=== PATIENT | female | born 1945 | race Caucasian/White ===

== ENCOUNTER → 2017-03-21 | Outpatient (CLI) | payer MEDICARE, MEDICAID ==
[~2017-03-21] MED LIST: ADVAIR DISK28 PUFFS IN; ALBUTEROL-200 PUFFS/ IH; AZITHROMYCIN250 MG PO; AZO-STANDARD95 MG PO; BROMFED DM COU118 ML PO; CEFDINIR300 MG PO; CEFTIN500 MG PO; DIFLUCAN150 MG PO; IBUPROFEN 200200 MG PO; LEVAQUIN 500 M500 MG PO; LISINOPRIL 10MG10 MG PO; MACROBID 100MG100 MG PO; MONTELUKAST SOD10 MG PO; OXAZEPAM 15MG C15 MG PO; PREDNISONE 20MG20 MG PO; PROVENTIL0.09 MG/A1 IH; PYRIDIUM 200MG200 MG PO; SEPTRA DS 800 M1 TAB PO; TESSALON PERLE100 M1 PO; TESSALON PERLE200 MG PO; ZYRTEC 10MG TAB10 MG PO; [UNRECOGNIZED DRUG - OTHER] PO
--- NOTE | 2017-03-21 15:08 | RADIOLOGY REPORT PS360 ---
EXAM: LUMBAR SPINE 5 VIEWS HISTORY: LOW BACK PAIN ORDERING PHYSICIAN: Ashok Edward MD PATIENT AGE: 71 years COMPARISON: 12 at 11 FINDINGS: There is mild levoscoliosis of the lumbar spine measuring 24 degrees by Ly technique.. Previously the scoliosis measured approximately 13 degrees. Degenerative disc disease is present from L1 to S1. Ridging osteophytes are noted on the right L2-L3. Mild facet arthritic changes are present at L4-L5 and L5-S1. No acute fracture or dislocation evident. No lytic or blastic change. Diffuse atherosclerotic calcification noted of the aorta. IMPRESSION: 1. Levoscoliosis slightly worse compared to the previous exam with lumbar spondylosis as detailed above.
--- NOTE | 2017-03-21 15:09 | RADIOLOGY REPORT PS360 ---
HIP RT 2-3V W/PELVIS IF PERFOR HISTORY: RT HIP PAIN ORDERING PHYSICIAN: Ashok Edward MD PATIENT AGE: 71 years COMPARISON: None FINDINGS: Moderate osteoarthritic changes are present involving the right hip with decrease in the joint space, osteophyte formation, and osteosclerosis. No acute fracture or dislocation. No lytic or blastic change. IMPRESSION: Moderate osteoarthritis of the right hip
== END ==
LOC: RAD 12:44
DX: M54.5 Low back pain (principal); M25.551 Pain in right hip

== ENCOUNTER 2017-10-01 09:24 | Inpatient (IN) | payer MEDICARE, MEDICAID ==
[2017-10-01] VITALS (8 sets, daily range): BP systolic 89–152; BP diastolic 48–94
[~2017-10-01] VITALS: Ht 160 cm; Wt 51.9 kg
[~2017-10-01 09:24] MED LIST changes: +TRAMADOL50 M1 PO; +ZITHROMAX Z PA250 MG PO
[2017-10-01] MEDS ORDERED: AMOXICILLIN 50500 MG PO (09:28)
--- OUTSIDE RECORDS SUMMARY | 2017-10-01 09:32 | External Medical Summary Rpt | CCD ---
Author Author [employer] Organization [employer] Address Unknown Phone Unavailable Purpose Continuity of Care Document - through 2016
--- OUTSIDE RECORDS SUMMARY | 2017-10-01 09:32 | External Medical Summary Rpt ---
Author Author CHILANGOTHANIA Haile, [place] [employer] Organization [employer] Address Unknown Phone Unavailable Results Lactate [Moles/volume] in Blood Observa Value Referen Units Interpr Notes Date tion ce etation Range Lactate 0.4 - 2.0 mmol/L Normal No May 16 [Moles/vo informati 2017 8:00 lume] in on in AM Blood source data Fibrin D-dimer FEU [Mass/volume] in Platelet poor plasma Observa Value Referen Units Interpr Notes Date tion ce etation Range Fibrin 0 - 400 ng/mL High May 16 D-dimer alert NOTIFICAT 2017 7:15 FEU ION AM [Mass/vol RESULT ume] in The Platelet D-Dimer poor values plasma are presented in units of mass(ng/m L) ofD-Dimer units(DDU ).This test has been FDA approved as an aid in the assessmen tand evaluatio n of suspected DIC, and thromboem bolic eventsinc luding PE and DVT. However, it does not have approvalf or cut-off values for the exclusion of these condition s. CBC W Auto Differential panel in Blood Observa Value Referen Units Interpr Notes Date tion ce etation Range Basophils 0 - 0.2 K/MM3 Normal No May 16 informati 2016 7:15 [#/volume on in AM ] in source Blood by data Automated count Basophils 0.1 - 2.0 % Normal No May 16 informati 2016 7:15 leukocyte on in AM s in source Blood by data Automated count Eosinophi 0.0 - 0.4 K/mm3 Normal No May 16 ls informati 2016 7:15 [#/volume on in AM ] in source Blood by data Automated count Eosinophi 0.1 - % Normal No May 16 ls/100 12.0 informati 2016 7:15 leukocyte on in AM s in source Blood by data Automated count Granulocy 1.8 - 7.8 K/mm3 High No May 16 regan informati 2017 7:15 [#/volume on in AM ] in source Blood by data Automated count Granulocy 37.0 - % Normal No May 16 regan/100 80.0 informati 2017 7:15 leukocyte on in AM s in source Blood by data Automated count Hematocri 37.0 - % Low No May 16 t [Volume 47.0 informati 2017 7:15 on in AM Fraction] source of Blood data Hemoglobi 12.2 - g/dL Low No May 16 n 16.2 informati 2016 7:15 [Mass/vol on in AM ume] in source Blood data Lymphocyt 0.7 - 4.5 K/mm3 Normal No May 16 es informati 2017 7:15 [#/volume on in AM ] in source Unspecifi data ed specimen by Automated count Lymphocyt 10 - 50.0 % Normal No May 16 es informati 2016 7:15 [#/volume on in AM ] in source Unspecifi data ed specimen by Automated count Erythrocy 27 - 31.2 pg Normal No May 16 te mean informati 2016 7:15 corpuscul on in AM ar source hemoglobi data n [Entitic mass] Erythrocy 31.8 - g/dl Normal No May 16 te mean 35.4 informati 2017 7:15 corpuscul on in AM ar source hemoglobi data n concentra tion [Mass/vol ume] by Automated count Erythrocy 82.2 - fl Normal No May 16 te mean 97.8 informati 2017 7:15 corpuscul on in AM ar volume source [Entitic data volume] by Automated count Monocytes 0.1 - 1.0 K/mm3 Normal No May 16 informati 2017 7:15 [#/volume on in AM ] in source Blood by data Automated count Monocytes 1.7 - 9.3 % Normal No May 16 / informati 2017 7:15 leukocyte on in AM s in source Blood by data Automated count Platelet 7.4 - fl Low No May 16 mean 10.4 informati 2017 7:15 volume on in AM [Entitic source volume] data in Blood by Automated count Platelets 142 - 424 K/mm3 High No May 16 informati 2017 7:15 [#/volume on in AM ] in source Blood data Erythrocy 4.2 - 5.4 M/mm3 Low No May 16 regan informati 2017 7:15 [#/volume on in AM ] in source Amniotic data fluid Erythrocy 11.5 - % Normal No May 16 te 17.5 informati 2017 7:15 distribut on in AM ion width source [Entitic data volume] by Automated count Leukocyte 4.8 - K/MM3 High No May 16 s 10.8 informati 2017 7:15 [#/volume on in AM ] in source Blood data
--- OUTSIDE RECORDS SUMMARY | 2017-10-01 09:32 | External Medical Summary Rpt | CCD ---
Author Author , [place] COLEMAN Address Unknown Phone [email or web address] Purpose Continuity of Care Document - 05-16-2017 through 2016 Problems Code Diagnosis DOS Provider Status R07.89 OTHER CHEST PAIN
--- OUTSIDE RECORDS SUMMARY | 2017-10-01 09:32 | External Medical Summary Rpt | CCD ---
Author Author , [place] COLEMAN Address Unknown Phone [email or web address] Purpose Continuity of Care Document - 05-16-2017 through 2016 Problems Code Diagnosis DOS Provider Status R07.89 OTHER CHEST PAIN
--- OUTSIDE RECORDS SUMMARY | 2017-10-01 09:32 | External Medical Summary Rpt | CCD ---
Author Author , [place] COLEMAN Address Unknown Phone [email or web address] Immunization Name Date Rout CVX Reac Dose Comm Prov Is Faci e tion ent ider Refu lity Give sed n PPV2 10- 33 999 Hist D203 No D203 3 7-20 oric 45 45 16 al Info rmat ion - Sour ce Unsp ecif ied Infl 10- 135 999 Hist D203 No D203 uenz 7-20 oric 45 45 a, 16 al High Info rmat Dose ion - Sour ce Unsp ecif ied
--- OUTSIDE RECORDS SUMMARY | 2017-10-01 09:32 | External Medical Summary Rpt ---
Author Author CHILANGOTHANIA Haile, [place] [employer] Organization [employer] [employer] Address Unknown Phone Unavailable [...]
--- OUTSIDE RECORDS SUMMARY | 2017-10-01 09:32 | External Medical Summary Rpt | CCD ---
Author Author , [place] COLEMAN Address Unknown Phone [email or web address] Immunization Name Date Rout CVX Reac Dose [...]
[2017-10-01 09:42] LABS: LYMPH # 2.5 K/mm3 (0.7-4.5); LYMPH % 15.1 % (10-50.0)
[2017-10-01] MEDS ORDERED: ACETAMINOPHEN-H1 TA2 PO (09:42)
[2017-10-01] MEDS ORDERED: ESCITALOPRAM10 M1 PO (09:43)
[2017-10-01] MEDS ORDERED: OMEPRAZOLE20 MG PO (09:43)
--- NOTE | 2017-10-01 10:01 | Emergency Room Report ---
History of Present Illness Time Seen by 09 Presenting Problem in Triage Pt arrived:Ambulance Stretcher Presenting Problem:PT REPORTS INCREASED SOA THIS MORNING, EMS STATED SA02 UPON ARRIVAL WAS 88% ON RA. PT IS CURRENTLY BEING TREATED FOR BRONCHITIS, HX OF "CHEMICAL PNEUMONIA", HX OF COPD PT ARRIVED ON CONTINUOUS NEB TREATMENT PER EMS Onset of symptoms date/time:10/01/17/ or onset unknown for:MEDICAL HX UNKNOWN Treatment Prior to Arrival: #20 L AC, BLOOD DRAW, CONTINUOUS DUONEB EMERGENCY DISPATCHER Provided by:RADIO FREQUENCY DESIGN ENGINEER Sepsis Risk Assessment: Temp: 97.1 B/P: 131/94 MAP: 106 Pulse: 148 Resp: 28 Recent fever? N Clinical Suspician of Infection? Y Mental Status: 1 - Regular (Normal Baseline) Sepsis Risk:Severe Sepsis Risk Have you (or family members/close friends) recently traveled outside the [place]? N If Yes, where/when: Have you had exposure to infectious disease within the past month? N TB? Other? Specify: 71 YRS OLD WF WITH CHEST DEFORMITY, CHEMICAL PNEUMONITIS AND AVID SMOKER OF LESS THAN A PACK A DAY. SHE STARTED FEELING SOA AND STARTED ON STEROID PACK THREE DAYS AGO. THIS MORNING SHE WAS WORSE SOA, SPEAKS SOHRT SENTENCES, HER DAUGHTER ARRIVED AND HER SATS WERE 88% AND FAST HEART RATE, CALLED EMS AND WAS ANNE MARIE HERE , HER SAT WAS ABOVE 96% ON 3 L NC, SHE HAS NO SUPPLEMENTAL OXYGEN AT HOME. SHE DENIES FEVER, PRODUCTIVE BUT ADMITS FOR WHEEZING. Source patient, RN notes reviewed, family, EMS notes reviewed Exam Limitations no limitations (HARD HEARING ), clinical condition ALLERGIES Coded Allergies: Quinolones (Mild, 11/22/15) trazodone (Mild, 11/22/15) Home Medications Active Scripts Benzonatate (Tessalon Perle) 100 MG PO Q4HP PRN couph #30 SGL Prov: 11/22/15 Reported Medications LISINOPRIL (Lisinopril) 10 MG PO DAILY Oxazepam (Oxazepam 15MG) 15 MG PO BIDP Cetirizine Hcl (All Day Allergy) 10 MG PO DAILY Albuterol (Albuterol-Hfa Inhaler) 2 PUFFS IH Q4HP #1 INH FLUTICASONE/SALMETEROL (Advair 500-50 Diskus) 28 PUFFS IN BID Montelukast Sodium 10 MG PO DAILY 30 Days Amoxicillin Trihydrate (Amoxicillin 500MG) 500 MG PO BID #28 HYDROCODONE/ACETAMINOPHEN (Hydrocodon-Acetaminophen 5-325) 1 TAB PO TID #90 Escitalopram Oxalate 10 MG PO DAILY #90 Omeprazole (Omeprazole 20MG) 20 MG PO DAILY #90 History Medical History General CAD? No Angina: No [place]: No Hypertension? Yes Hyperlipidemia? No CHF? No DVT? No PE? No COPD? Yes Asthma? No Anemia? No GERD? Yes Gastric ulcers? No GI Bleed? No Hernia? No Thyroid Problems? No Hypothyroidism? No CVA? No Seizures? No Diabetes? No Renal Insuffiency? No End Stage Renal Disease? No UTI? No Stones? No GB Disease: No Nephritic Syndrome? No Asplenia? No Hepatitis? No Sickle Cell Disease? No Arthritis? Yes Migraines? No Cataracts? No Glaucoma? No MRSA? No HIV? No TB? No Anxiety? Yes Depression? No Cancer? No More? Yes Additional hx: SCOLIOSIS Immunization Hx DT/Tetanus 1-4 YRS Flu THIS YR Pneumonia NOT SURE Surgical Hx Previous Surgery?Y TUBAL RIGHT ARM SURG. LUNG WASH OUT Family History Family Hx Diabetes Yes CAD Yes Hypertension Yes Hyperlipidemia Yes Cancer Yes TB Yes Social History Smoking Hx Smoker: Current Every Day Smoker Tobacco: Yes Type Cigarettes Packs/day < 1 Pack Alcohol Alcohol: No Review of Systems All Other Systems Reviewed and Negative Eyes no symptoms reported ENT no symptoms reported. Respiratory see HPI, shortness of breath Cardiovascular no symptoms reported Gastrointestinal no symptoms reported Genitourinary no symptoms reported. Musculoskeletal no symptoms reported Skin no symptoms reported Psychiatric/Neurological no symptoms reported Physical Exam Vital Signs Vital Signs Date Time Temp Pulse Resp B/P Pulse O2 O2 Flow FiO2 Ox Delivery Rate 10/01 1022 133 26 105/58 97 3 10/01 0924 97.1 148 28 131/94 99 5 - WBC >12,000 or <4,000 or 10% bands? 2 or more SIRS Criteria Met? B/P:131/94 MAP:106 Creatinine >2.0? UA output<0.5ml/kg/hr for 2 hrs? Platelet count >100,000? Lactate >2.0mmol/1? INR >1.2 or PTT > than 60 sec? Evidence of Organ Dysfunction? Provider documented clinical suspician of infection? Y Sepsis Criteria Count: 3 Sepsis Risk: Severe Sepsis Risk General Appearance normal appearance, WD/WN Eye Exam - bilateral eye normal exam, bilateral eye PERRL, bilateral eye EOMI Ear, Nose, Throat hearing grossly normal, normal ENT inspection Neck normal inspection, non-tender, supple, full range of motion Respiratory Status Yes: respiratory distress, use of accessory muscles, non productive cough. No: chest symmetrical, non tender chest. Lung Sounds bilateral: decreased breath sounds. Cardiovascular normal exam, regular rate/rhythm, no peripheral edema, no gallop, no JVD, no murmur, no rub, normal peripheral pulses Peripheral Pulses Pulses normal Yes Gastrointestinal normal bowel sounds, normal exam, non tender, soft, no organomegaly Back normal inspection, no CVA tenderness, no vertebral tenderness Extremities non-tender, normal range of motion, normal inspection Neurologic alert, zookeeper II-XII nml as tested, normal exam, oriented x 3 Reflexes Reflexes normal Yes Mental status normal mood/affect Skin intact, normal color, warm/dry Lymphatic no adenopathy Medical Decision Making LABS/Meds/Orders Pt receiving controlled substance in ED? No Results/Orders Laboratory Tests 10/01/17 0945: Lactic Acid 3.9 H 10/01/17 0920: B-Natriuretic Peptide 440 H 10/01/17 0920: Sodium 133 L, Potassium 4.9, Chloride 96 L, Carbon Dioxide 26, BUN 5 L, Creatinine 0.8, Estimated Creat Clear 53, Estimated GFR (MDRD) 71, Glucose 172 H, Calcium 10.5 H, Total Bilirubin 0.2, AST 19, ALT 27, Alkaline Phosphatase 97 , Creatine Kinase 33, CK-MB (CK-2) Rel Index 4.5 H, CK and CKMB Interp 1.5, Troponin I 0.03, Total Protein 8.1, Albumin 3.4, Globulin 4.7 H, Albumin/ Globulin Ratio 0.7 L, WBC 16.3 H, RBC 4.55, Hgb 12.8, Hct 43.1, MCV 94.7, RDW 13.6, Plt Count 568 H, MPV 7.0 L, Gran % 78.1, Gran # 12.7 H, Total Counted 100, Lymphocytes % 15.1, Monocytes % 6.2, Eosinophils % 0.1, Basophils % 0.4, Neutrophils 74, Band Neutrophils 2, Lymphocytes (Manual) 10, Lymphocytes # 2.5, Monocytes (Manual) 14 H, Monocytes # 1.0, Eosinophils # 0.0, Basophils # 0.1, Platelet Estimate SLIGHT INCREASE, PUBS MCHC 30.1 L, MCH 28.5 Current Medication Orders Sig/Vnaia Start time Last Medication Dose Route Stop Time Status Admin Ceftriaxone Sodium 1 GM ONCE ONE 10/01 1015 DC 10/01 Sodium Chloride 50 ML IV 10/01 1044 1018 Famotidine 20 MG ONCE ONE 10/01 1015 DC 11/ IV 10/01 1016 1017 Levalbuterol HCl 1.25 MG ONCE ONE 10/01 1015 DC INH 10/01 1016 Sodium Chloride 8 ML ONCE ONE 10/01 1015 DC / IV 10/01 1016 1018 Sodium Chloride 1,000 ML .Q2H 10/01 1015 AC 10/01 IV 10/01 1214 1016 Sodium Chloride 10 ML PRN PRN 10/01 1015 AC IV 10/02 1005 Ceftriaxone Sodium 0 .STK-MED ONE 10/01 1014 DC IV Famotidine 0 .STK-MED ONE 10/01 1014 DC IV Sodium Chloride 50 ML .STK-MED ONE 10/01 1014 DC IV Sodium Chloride 1,000 ML .STK-MED ONE 10/01 1014 DC IV Levalbuterol HCl 0 .STK-MED ONE 10/01 0952 DC INH Methylprednisolone 125 MG ONCE ONE 10/01 0945 DC 10/01 Sodium Succinate IV 10/01 0946 0935 Sodium Chloride 10 ML PRN PRN 10/01 0930 AC IV 10/02 0926 Methylprednisolone 0 .STK-MED ONE 10/01 0929 DC Sodium Succinate .ROUTE Orders Procedure Date/time Status Decision to admit 10/01 1106 Active RT REQUEST XOPENEX NEB 10/01 1003 Active BRAIN NATRIURETIC PEPTIDE 10/01 0944 Complete ARTERIAL BLOOD GAS REQUEST 10/01 928 Active 12 LEAD EKG-BESSON (INITIAL) 10/01 927 Active ELECTROCARDIOGRAM REQUEST 10/01 927 Active IV SALINE LOCK 10/01 927 Active CULTURE, BLOOD 10/01 927 Active LACTIC ACID 10/01 927 Complete CBC WITH AUTO DIFF 10/01 927 Complete CARDIAC ENZYMES 10/01 927 Complete CHEM 12 PROFILE 10/01 927 Complete DIFFERENTIAL-WBC 10/01 920 Complete CM/EKG CM/EKG EKG SINUS TACHYCARDIA 150/MIN, LAD, OLD AWMI, NO ACUTE . XRAY/CT/US XRAY/CT/US XRAY chest XR interpretation by reviewed by me Xray Results DIMINSHED R LUNG VOLUME, UPPER LOBE SCARING, AAYUSH CUTE INFILTRATES, Departure Departure Time of Disposition 09 Disposition Still a Patient Clinical Impression Primary Impression: COPD exacerbation Secondary Impressions: Congenital pectus excavatum, Respiratory failure, Tobacco use Condition STABLE Referrals Wagner BAKER,Ashok (Family) Additional Instructions Following the Xopenex neb treatment 2 days the patient started having increased air entry and wheezing. Her heart rate was decreased to 132. She is needs a supplemental oxygen. 10:[address] Fry who is chimney construction supervisor for Dr Edward. 1100 am the patient was accepted for [facility] Discharge Counseling Counseled pt/family regarding diagnosis, test results, medications/RX, follow up needs ED Critical Care Critical Care No If Critical Care minutes are documented, the time involved in the performance of seperately reportable procedures was not counted toward critical care time documented. I directly delivered medical care to this critically ill and/or injured patient. Timely evaluation and treatment was necessary to address the significant organ system(s) dysfunction present in this patient. at 0760
[2017-10-01 10:05] LABS: HEMOGLOBIN 12.8 g/dL (12.2-16.2)
[2017-10-01 10:36] LABS: NEUTROPHILS 74 % (42-76)
--- NOTE | 2017-10-01 11:07 | RADIOLOGY REPORT PS360 ---
CHEST-PORTABLE HISTORY: Shortness of air SOA ORDERING PHYSICIAN: Renetta Green MD PATIENT AGE: 71 years COMPARISON: 05/16/2017 FINDINGS: Normal heart size.. Severe right apical fibrotic changes with volume loss and right hilar retraction with emphysematous change of the right lung. This is not significant change. Increased markings are present in the left lower lobe and may be due to underlying pneumonia superimposed upon chronic change. No acute bony anomalies. IMPRESSION: 1. Chronic changes with emphysema and scarring/volume loss. 2. Increased markings left lower lobe which may be related to pneumonia
--- OUTSIDE RECORDS SUMMARY | 2017-10-01 11:12 | External Medical Summary Rpt | CCD ---
Author Author , [place] COLEMAN Address Unknown Phone [email or web address] Purpose Continuity of Care Document - 05-16-2017 through 2016 Problems Code Diagnosis DOS Provider Status R07.89 OTHER CHEST PAIN Results Labs Lab Lab Date Result Refere Interp Status Commen Order Detail nces retati t Range on Blood lactic acid measurement (moles/vol (10-01-2017 09:45) Blood = 3.9 0.4-2.0 complet lactic 017 mmol/L ed acid 09:45 measure ment (moles/ vol Comment: An elevated Lactic Acid is suggestive of sepsis and should Comment: be repeated within 6 hours of initial testing. Cardiac enzymes (10-01-2017 09:20) Serum = 4.5 0-4.0 complet or 017 U/L ed plasma 09:20 creatin e kinase MB (CK-M Serum = 1.5 0.0-3.6 complet or 017 ng/mL ed plasma 09:20 creatin e kinase MB measu Serum = 33 26-192 complet or 017 U/L ed plasma 09:20 creatin e kinase measure m Serum = 0.03 0.00-0. complet or 017 ng/mL 06 ed plasma 09:20 troponi n i.cardi ac measu Comprehensive metabolic panel (10-01-2017 09:20) Estimat = 53 50-200 complet ion of 017 ML/MIN ed creatin 09:20 ine renal clearan ce Serum = 0.7 1.1-1.8 complet or 017 ed plasma 09:20 albumin /globul in mass ra Serum = 3.4 3.4-5.0 complet or 017 gm/dL ed plasma 09:20 albumin measure ment (mas Serum = 97 46-116 complet or 017 U/L ed plasma 09:20 alkalin e phospha tase lisandra Serum 11-12-2 = 0.2 0.2-1.0 complet or 017 mg/dL ed plasma 09:20 total bilirub in measure m Serum 10-01-2 = 5 7-18 complet or 017 mg/dL ed plasma 09:20 urea nitroge n measure men Serum 10-01-2 = 10.5 8.5-10. complet or 017 mg/dL 1 ed plasma 09:20 calcium measure ment (mas Serum 2 = 96 98-107 complet or 017 mmoL/L ed plasma 09:20 chlorid e measure ment (mo Carbon 2 = 26 21.0-32 complet dioxide 017 mmoL/L .0 ed 09:20 measure ment Serum 10-01-2 = 0.8 0.55-1. complet or 017 mg/dL 02 ed plasma 09:20 creatin ine measure ment ( Estimat = 71 59- complet ed 017 ML/MIN ed glomeru 09:20 lar filtrat ion rate (GF Comment: REFERENCE RANGE: >60 ML/MIN/1.73 SQUARE METERS Comment: If this patient is -Croatian, then multiply the Comment: result by 1.210. Serum 10-01-2 = 4.7 1.3-3.2 complet globuli 017 gm/dL ed n 09:20 measure ment (mass/v olume) Serum 2 = 172 74-106 complet or 017 mg/dL ed plasma 09:20 glucose measure ment (mas Serum 2 = 4.9 3.5-5.1 complet potassi 017 mmoL/L ed um 09:20 measure ment Serum 2 = 133 136-145 complet sodium 017 mmoL/L ed measure 09:20 ment Serum 2 = 19 15-37 complet or 017 U/L ed plasma 09:20 asparta te aminotr ansfera ALT = 27 12-78 complet (SGPT) 017 U/L ed ser/vinay 09:20 s Protein 2 = 8.1 6.4-8.2 complet total 017 gm/dL ed ser/vinay 09:20 s Brain natriuretic peptide (10-01-2017 09:20) Brain --2 = 440 0-100 complet natriur 017 pg/mL ed etic 09:20 peptide CBC w auto diff (10-01-2017 09:20) Automat = 0.1 0-0.2 complet ed 017 K/MM3 ed blood 09:20 basophi l count (count/ vo Baso % = 0.4 % 0.1-2.0 complet 017 ed 09:20 Mean = 28.5 27-31.2 complet corpusc 017 pg ed ular 09:20 hemoglo bin (MCH) determ Automat = 30.1 31.8-35 complet ed 017 g/dl .4 ed erythro 09:20 cyte mean corpusc ular h Automat = 0.0 0.0-0.4 complet ed 017 K/mm3 ed blood 09:20 eosinop hil count Automat = 0.1 % 0.1-12. complet ed 017 0 ed blood 09:20 eosinop hils/10 0 leukocy t Blood = 12.7 1.8-7.8 complet granulo 017 K/mm3 ed cytes 09:20 automat ed count (numb Granulo = 78.1 37.0-80 complet cyte 017 % .0 ed percent 09:20 age Blood = 43.1 37.0-47 complet hematoc 017 % .0 ed rit 09:20 (volume fractio n) Blood = 12.8 12.2-16 complet hemoglo 017 g/dL .2 ed bin 09:20 measure ment (mass/v olum Absolut = 2.5 0.7-4.5 complet e 017 K/mm3 ed lymphoc 09:20 yte count Lymphoc = 15.1 10-50.0 complet yte 017 % ed count, 09:20 blood, automat ed Automat = 94.7 82.2-97 complet ed 017 fl .8 ed erythro 09:20 cyte mean corpusc ular v Absolut = 1.0 0.1-1.0 complet e 017 K/mm3 ed monocyt 09:20 e count [place] % = 6.2 % 1.7-9.3 complet 017 ed 09:20 Automat = 7.0 7.4-10. complet ed 017 fl 4 ed blood 09:20 platele t mean volume lisandra Blood = 568 142-424 complet platele 017 K/mm3 ed t count 09:20 Red = 4.55 4.2-5.4 complet blood 017 M/mm3 ed cell 09:20 count Automat = 13.6 11.5-17 complet ed 017 % .5 ed erythro 09:20 cyte distrib ution width Blood = 16.3 4.8-10. complet leukocy 017 K/MM3 8 ed regan 09:20 count (number /volume ) Differential panel, method unspecified - (10-01-2017 09:20) Automat = 2 % 0-8 complet ed 017 ed blood 09:20 band neutrop hil percent a LYMPH 10 % 10-50 complet 017 ed 09:20 Monocyt = 14 % 2-9 complet e % 017 ed 09:20 Platele SLIGHT complet t 017 INCREAS ed estimat 09:20 E e SLIGHT INCREAS E L Neutrop = 74 % 42-76 complet hil 017 ed count 09:20 Blood = 100 complet total 017 #CELLS ed cell 09:20 count Differential panel, method unspecified - (10-01-2017 09:20) LYMPH 10-01- 10 % 10% - Normal complet 017 50% ed 09:20 Platele SLIGHT complet ts 017 INCREAS ed [Presen 09:20 E ce] in Blood by Light microsc opy
--- OUTSIDE RECORDS SUMMARY | 2017-10-01 11:12 | External Medical Summary Rpt | CCD ---
Author Author , VIRGINIA COLEMAN Address Unknown Phone [email or web address] Purpose Continuity of Care Document - 05-16-2017 [...] SQUARE METERS Comment: If this patient is -Russian, then multiply the Comment: result by 1.210. [...] 017 K/mm3 ed monocyt 09:20 e count [place] % = 6.2 % 1.7-9.3 complet 017 [...]
--- OUTSIDE RECORDS SUMMARY | 2017-10-01 11:13 | External Medical Summary Rpt ---
Author Author CHILANGOTHANIA Haile, [employer] Address Unknown Phone Unavailable Results Lactate [Moles/volume] in Blood Observa Value Referen Units Interpr Notes Date tion ce etation Range Lactate 0.4 - 2.0 mmol/L High An Oct 01 [Moles/vo elevated 2017 9:45 lume] in Lactic AM Blood Acid is suggestiv e of sepsis and shouldbe repeated within 6 hours of initial testing. CBC W Auto Differential panel in Blood Observa Value Referen Units Interpr Notes Date tion ce etation Range Basophils 0 - 0.2 K/MM3 Normal No Oct 01 informati 2016 9:20 [#/volume on in AM ] in source Blood by data Automated count Basophils 0.1 - 2.0 % Normal No Oct 01 informati 2016 9:20 leukocyte on in AM s in source Blood by data Automated count Eosinophi 0.0 - 0.4 K/mm3 Normal No Oct 01 ls informati 2016 9:20 [#/volume on in AM ] in source Blood by data Automated count Eosinophi 0.1 - % Normal No Oct 01 ls/100 12.0 informati 2016 9:20 leukocyte on in AM s in source Blood by data Automated count Granulocy 1.8 - 7.8 K/mm3 High Oct 01 regan informati 2016 9:20 [#/volume on in AM ] in source Blood by data Automated count Granulocy 37.0 - % Normal No Oct 01 regan/100 80.0 informati 2016 9:20 leukocyte on in AM s in source Blood by data Automated count Hematocri 37.0 - % Normal Oct 01 t [Volume 47.0 informati 2016 9:20 on in AM Fraction] source of Blood data Hemoglobi 12.2 - g/dL No Oct 01 n 16.2 informati informati 2016 9:20 [Mass/vol on in on in AM ume] in source source Blood data data Lymphocyt 0.7 - 4.5 K/mm3 Normal No Nov 12 es informati 2016 9:20 [#/volume on in AM ] in source Unspecifi data ed specimen by Automated count Lymphocyt 10 - 50.0 % Normal No Oct 01 es informati 2016 9:20 [#/volume on in AM ] in source Unspecifi data ed specimen by Automated count Erythrocy 27 - 31.2 pg Normal No Oct 01 te mean informati 2016 9:20 corpuscul on in AM ar source hemoglobi data n [Entitic mass] Erythrocy 31.8 - g/dl Low No Oct 01 te mean 35.4 informati 2017 9:20 corpuscul on in AM ar source hemoglobi data n concentra tion [Mass/vol ume] by Automated count Erythrocy 82.2 - fl Normal No Oct 01 te mean 97.8 informati 2016 9:20 corpuscul on in AM ar volume source [Entitic data volume] by Automated count Monocytes 0.1 - 1.0 K/mm3 Normal No Oct 01 informati 2016 9:20 [#/volume on in AM ] in source Blood by data Automated count Monocytes 1.7 - 9.3 % Normal No Sep 12 /100 informati 2017 9:20 leukocyte on in AM s in source Blood by data Automated count Platelet 7.4 - fl Low No Oct 01 mean 10.4 informati 2017 9:20 volume on in AM [Entitic source volume] data in Blood by Automated count Platelets 142 - 424 K/mm3 High No Oct 01 informati 2016 9:20 [#/volume on in AM ] in source Blood data Erythrocy 4.2 - 5.4 M/mm3 Normal No Sep 12 regan informati 2016 9:20 [#/volume on in AM ] in source Amniotic data fluid Erythrocy 11.5 - % Normal No Oct 01 te 17.5 informati 2016 9:20 distribut on in AM ion width source [Entitic data volume] by Automated count Leukocyte 4.8 - K/MM3 High No Sep 12 s 10.8 informati 2016 9:20 [#/volume on in AM ] in source Blood data Differential panel, method unspecified - Observa Value Referen Units Interpr Notes Date tion ce etation Range Neutrophi 0 - 8 % Normal No Oct 01 ls.band informati 2016 9:20 form/100 on in AM leukocyte source s in data Blood by Automated count LYMPH 10 10 - 50 % Normal No Oct 01 informa 2017 tion in 9:20 AM source data Monocytes 2 - 9 % High No Oct 01 /100 informati 2017 9:20 leukocyte on in AM s in source Blood by data Automated count Platele SLIGHT No No No No Oct 01 ts INCREAS informa informa informa informa 2016 [Presen E tion in tion in tion in tion in 9:20 AM ce] in source source source source Blood data data data data by Light microsc opy Neutrophi 42 - 76 % Normal No Oct 01 ls informati 2016 9:20 [#/volume on in AM ] in source Blood by data Automated count Cells No #CELLS No Oct 01 Counted informati informati informati 2016 9:20 Total [#] on in on in on in AM in Blood source source source data data data Natriutietic peptide B [Mass/volume] in Serum or Plasma Observa Value Referen Units Interpr Notes Date tion ce etation Range Natriutie 0 - 100 pg/mL High No Oct 01 tic informati 2016 9:20 peptide B on in AM source [Mass/vol data ume] in Serum or Plasma Cardiac enzymes Observa Value Referen Units Interpr Notes Date tion ce etation Range Creatine 0 - 4.0 U/L High No Oct 01 kinase.MB informati 2016 9:20 /Creatine on in AM source kinase.to data saúl [Ratio] in Serum or Plasma Creatine 0.0 - 3.6 ng/mL Normal No Oct 01 kinase.MB informati 2016 9:20 on in AM [Mass/vol source ume] in data Serum or Plasma Creatine 26 - 192 U/L Normal No Oct 01 kinase informati 2016 9:20 [Enzymati on in AM c source activity/ data volume] in Serum or Plasma Troponin 0.00 - ng/mL Normal No Oct 01 I.cardiac 0.06 informati 2016 9:20 on in AM [Mass/vol source ume] in data Serum or Plasma Comprehensive metabolic 2000 panel in Serum or Plasma Observa Value Referen Units Interpr Notes Date tion ce etation Range Albumin/G 1.1 - 1.8 No Low No Oct 01 lobulin informati informati 2016 9:20 [Mass on in on in AM ratio] in source source Serum or data data Plasma Albumin 3.4 - 5.0 gm/dL Normal No Oct 01 [Mass/vol informati 2017 9:20 ume] in on in AM Serum or source Plasma data Alkaline 46 - 116 U/L Normal No Oct 01 phosphata informati 2016 9:20 se on in AM [Enzymati source c data activity/ volume] in Serum or Plasma Bilirubin 0.2 - 1.0 mg/dL Normal No Oct 01 .total informati 2016 9:20 [Mass/vol on in AM ume] in source Serum or data Plasma Urea 7 - 18 mg/dL Low No Oct 01 nitrogen informati 2016 9:20 [Mass/vol on in AM ume] in source Serum or data Plasma Calcium 8.5 - mg/dL High No Oct 01 [Mass/vol 10.1 informati 2016 9:20 ume] in on in AM Serum or source Plasma data Chloride 98 - 107 mmoL/L Low No Oct 01 [Moles/vo informati 2016 9:20 lume] in on in AM Serum or source Plasma data Carbon 21.0 - mmoL/L Normal No Oct 01 dioxide, 32.0 informati 2016 9:20 total on in AM [Moles/vo source lume] in data Serum or Plasma Creatinin 0.55 - mg/dL Normal No Oct 01 e 1.02 informati 2016 9:20 [Mass/vol on in AM ume] in source Serum or data Plasma Creatinin 50 - 200 ML/MIN Normal No Oct 01 e renal informati 2016 9:20 clearance on in AM source predicted data by Cockcroft -Gault formula Estimated 59- ML/MIN No REFERENCE Oct 01 informati RANGE: 2017 9:20 glomerula on in >60 AM r source ML/MIN/1. filtratio data 73 SQUARE n rate METERSIf (GF this patient is -A merican, then multiply theresult by 1.210. Globulin 1.3 - 3.2 gm/dL High No Oct 01 [Mass/vol informati 2016 9:20 ume] in on in AM Serum source data Glucose 74 - 106 mg/dL High No Oct 01 [Mass/vol informati 2016 9:20 ume] in on in AM Serum or source Plasma data Potassium 3.5 - 5.1 mmoL/L Normal No Oct 01 informati 2016 9:20 [Moles/vo on in AM lume] in source Serum or data Plasma Sodium 136 - 145 mmoL/L Low No Oct 01 [Moles/vo informati 2017 9:20 lume] in on in AM Serum or source Plasma data Aspartate 15 - 37 U/L Normal No Oct 01 informati 2016 9:20 aminotran on in AM sferase source [Enzymati data c activity/ volume] in Serum or Plasma Alanine 12 - 78 U/L Normal No Oct 01 aminotran informati 2016 9:20 sferase on in AM [Enzymati source c data activity/ volume] in Serum or Plasma Protein 6.4 - 8.2 gm/dL Normal No Oct 01 [Mass/vol informati 2016 9:20 ume] in on in AM Serum or source Plasma data Lactate [Moles/volume] in Blood Observa Value Referen Units Interpr Notes ti ce etation Range Lactate 0.4 - 2.0 mmol/L Normal No May 16 [Moles/vo informati 2016 8:00 lume] in on in AM Blood source data Fibrin D-dimer FEU [Mass/volume] in Platelet poor plasma Observa Value Referen Units Interpr Notes ce etation Range Fibrin 0 - 400 [...] Observa Value Referen Units Interpr Notes Date ti ce etation Range Basophils 0 - 0.2 [...] Normal No May 16 ls/100 12.0 informati 2017 7:15 leukocyte on in AM [...] Low No May 16 n 16.2 informati 2017 7:15 [Mass/vol on in AM ume] in [...] Normal No May 16 te mean informati 2017 7:15 corpuscul on in AM [...] Monocytes 1.7 - 9.3 % Normal No Apr 27 /100 informati 2017 7:15 leukocyte on in AM [...]
--- OUTSIDE RECORDS SUMMARY | 2017-10-01 11:13 | External Medical Summary Rpt | CCD ---
Demographics Preferred Language Vietnamese Marital Status Unknown Restorationist Affiliation Unknown Race Unknown Ethnic Group Unknown Author Author , [employer] Address Unknown Phone Immunization Unable to retrieve immunization data due to connection failure with Immunization Registry. Please try again later.
--- OUTSIDE RECORDS SUMMARY | 2017-10-01 11:13 | External Medical Summary Rpt | CCD ---
Demographics Preferred Language Ukrainian Marital Status Unknown Oriental Orthodox Affiliation Unknown Race Unknown Ethnic Group Unknown Author Author , [employer] [employer] Address Unknown Phone Immunization Unable to retrieve immunization data due to connection failure with Immunization Registry. Please try again later.
[2017-10-01] MEDS ORDERED: MEDROL 4MG. DOSE4 MG PO (11:55)
[2017-10-01] MEDS ORDERED: VISTARIL25 M1 PO (15:44)
--- NOTE | 2017-10-01 17:04 | HISTORY AND PHYSICAL REPORT ---
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 This morning her daughter-who apparently works as a licensed practical nurse elsewhere-took her saturations and found that they were in the low 80 percent range. She had seen Dr. Edward in his office last week and had been placed on prednisone orally for a chronic obstructive pulmonary disease exacerbation, initial improvement was noted but then this morning she felt worse. Presented to the emergency department where she was noted to be tachycardic. Patient did not notice this, after a nebulizer treatment, IV fluids and oxygen application she felt better. Chest x-ray has significant scarring but does show infiltrate. She is admitted to hospital for IV antibiotics, IV steroids, enhanced pulmonary toilet and further observation. Past medical history: Family HX Diabetes Yes CAD Yes Hypertension Yes Hyperlipidemia Yes Cancer Yes TB Yes Immunization HX DT/Tetanus 1-4 YRS Flu 2017-18FSN Pneumonia Received In Past TB Test in last year No General CAD? No Angina: No MA: No Hypertension? Yes Hyperlipidemia? No CHF? No DVT? No PE? 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 No Anemia? No GERD? Yes Gastric ulcers? No GI Bleed? No Hernia? No Thyroid Problems? No Hypothyroidism? No CVA? No Seizures? No Diabetes? No Renal Insuffiency? No UTI? No Stones? No GB Disease: No Nephritic Syndrome? No Asplenia? No Hepatitis? No Sickle Cell Disease? No Arthritis? Yes Migraines? No Cataracts? No Glaucoma? No MRSA? No HIV? No TB? No Anxiety? Yes Depression? No Cancer? No More? Yes Additional hx: SCOLIOSIS Past Surgical HX Previous Surgery?Y TUBAL RIGHT ARM SURG. LUNG WASH OUT Current home meds: Active Scripts Benzonatate (Tessalon Perle) 100 MG PO Q4HP PRN couph #30 SGL Prov: 11/22/15 Reported Medications LISINOPRIL (Lisinopril) 10 MG PO DAILY Oxazepam (Oxazepam 15MG) 15 MG PO TID Methylprednisolone (Medrol Dose Nahum) 4 MG PO UD [UNKNOWN] (Unknown Dose) TID Hydroxyzine Pamoate (Vistaril 25MG CAP) 25 MG PO Q6HP PRN ANXIETY Cetirizine Hcl (All Day Allergy) 10 MG PO DAILY Albuterol (Albuterol-Hfa Inhaler) 2 PUFFS IH Q4HP #1 INH FLUTICASONE/SALMETEROL (Advair 500-50 Diskus) 28 PUFFS IN BID Montelukast Sodium 10 MG PO DAILY 30 Days Amoxicillin Trihydrate (Amoxicillin 500MG) 500 MG PO BID #28 HYDROCODONE/ACETAMINOPHEN (Hydrocodon-Acetaminophen 5-325) 1 TAB PO TID #90 Escitalopram Oxalate 10 MG PO DAILY #90 Omeprazole (Omeprazole 20MG) 20 MG PO DAILY #90 Social Hx: Smoking HX Tobacco Yes Type Cigarettes Packs/day < 1 PACK Are you/the child exposed to second-hand smoke: Yes Alcohol Alcohol: No Hx of Drug Use Drug Use? No Patien't marital status is Patient's support system is good Review of systems: Constitutional malaise, weakness. No: fever. Respiratory shortness of breath, SOB with excertion, SOB at rest. No: stridor, wheezing. Cardiovascular No palpitations, No syncope Gastrointestinal/Abdominal No diarrhea, No difficulty swallowing, No nausea, poor appetite, poor fluid intake, No rectal bleeding, No vomiting Genitourinary No: no symptoms reported. Musculoskeletal back pain. Neurological No: see HPI. Exam: Lab data for last 24 hours: Laboratory Tests 10/01/17 1400: Lactic Acid 2.6 H 10/01/17 0945: Lactic Acid 3.9 H 10/01/17 0920: B-Natriuretic Peptide 440 H 10/01/17 0920: Sodium 133 L, Potassium 4.9, Chloride 96 L, Carbon Dioxide 26, BUN 5 L, Creatinine 0.8, Estimated Creat Clear 53, Estimated GFR (MDRD) 71, Glucose 172 H, Calcium 10.5 H, Total Bilirubin 0.2, AST 19, ALT 27, Alkaline Phosphatase 97 , Creatine Kinase 33, CK-MB (CK-2) Rel Index 4.5 H, CK and CKMB Interp 1.5, Troponin I 0.03, Total Protein 8.1, Albumin 3.4, Globulin 4.7 H, Albumin/ Globulin Ratio 0.7 L, WBC 16.3 H, RBC 4.55, Hgb 12.8, Hct 43.1, MCV 94.7, RDW 13.6, Plt Count 568 H, MPV 7.0 L, Gran % 78.1, Gran # 12.7 H, Total Counted 100, Lymphocytes % 15.1, Monocytes % 6.2, Eosinophils % 0.1, Basophils % 0.4, Neutrophils 74, Band Neutrophils 2, Lymphocytes (Manual) 10, Lymphocytes # 2.5, Monocytes (Manual) 14 H, Monocytes # 1.0, Eosinophils # 0.0, Basophils # 0.1, Platelet Estimate SLIGHT INCREASE, PUBS MCHC 30.1 L, MCH 28.5 Microbiology 10/01 945 BLOOD: Anaerobic Blood Culture - RECD 10/01 945 BLOOD: Aerobic Blood Culture - RECD 10/01 945 BLOOD: Anaerobic Blood Culture - RECD 10/01 945 BLOOD: Aerobic Blood Culture - RECD Admission vital signs: 1ST Vital Signs Result Date Time Pulse Ox 99 10/01 924 B/P 131/94 10/01 924 O2 Flow Rate 5 10/01 924 Temp 97.1 10/01 924 Pulse 148 10/01 924 Resp 28 10/01 924 O2 Delivery OXYGEN 10/01 1141 Additional information: Patient is pleasant, on oxygen, alert, oriented 3. Has obvious scoliotic deformity. Appears frail, mildly dehydrated, appears older than her stated age. Oropharynx dry but clear. Heart rate tachycardic but regular. Both anterior and posterior lung webb are afflicted with poor air movement, diminished breath sounds, barrel chest deformity and expiratory wheezing. She has mild tachypnea. Is able to finish sentences, in no acute distress. Abdomen soft, nontender. Capillary refill noted as normal. No edema in her extremities. Moves all extremities symmetrically. No facial asymmetry. Plan: Problem List 1. COPD exacerbation 2. Pneumonitis Plan: Plan will be to admit to hospital. Ceftriaxone/azithromycin as prescribed, start home medications. Hold DuoNeb and use Xopenex because of her tachycardia. Low- dose IV fluids. Labs in the morning. Of note, her daughter has indicated to nursing staff that she greatly desires an ABG done. I don't see any indication for this as her CO2 levels on her chemistry panel were normal, the patient is alert and her oxygen levels are normal. This is a painful, potentially dangerous test and without indication at this point it would seem useless at best and harmful at worst. However, her daughter-who identified herself as a licensed practical nurse-had some very sharp exchanges with some of our nursing staff on the floor and in fact had quite a vulgar tirade towards one of our staff nurses. When I spoke with the patient and family, including this individual they had no expressed concerns about the care she was receiving and did not mention the ABG issue. at 1703
[2017-10-01] MEDS ORDERED: ADVAIR DISK28 PUFFS IN ×2 (18:13→18:31)
[2017-10-02] VITALS (7 sets, daily range): BP systolic 94–128; BP diastolic 49–72
--- NOTE | 2017-10-02 07:14 | ACUTE CARE PROGRESS NOTE (QUA) ---
Progress Notes Subjective Date 10/02/17 Time 0710 Note Patient admitted yesterday with chronic obstructive pulmonary disease exacerbation. As the day progressed patient had episodes where she was increasingly dyspneic with sinus tachycardia. He was noted her electrocardiogram had changed from previous electrocardiogram nearly 4 months prior. Cardiac enzymes were ordered and troponin was positive. Patient was given metoprolol 25 mg which she responded to very well and it broke her sinus tachycardia. This morning she continues to complain of shortness of breath. She's had multiple doses of hydroxyzine as the patient has very significant anxiety over her health. Daughters are at bedside. Vitals noted. Patient has increased work of breathing. Nasal cannula is in place. Oropharynx is moist. Lungs have diminished breath sounds with prolonged expiration and end expiratory wheezes, no rales or rhonchi. Heart rate is distant but regular. Patient be given half milligram of Ativan to try to relax her. Zofran will be ordered prior Solu-Medrol as the patient believes is making her nauseous. Aerosols to been changed to Xopenex. Cardiology consult as been placed for non- STEMI. Objective Findings Last VS-Temp:97.5 B/P:107/67 Pulse:87 Resp:22 SaO2:94 OXYGEN Last weight lbs:114 oz:5 K.852 Method:Bed Scales Laboratory Tests 10/01/17 2200: Creatine Kinase 153, CK-MB (CK-2) Rel Index 6.3 H, CK and CKMB Interp 9.7 *H, Troponin I 1.23 H 10/01/17 1900: Creatine Kinase 130, CK-MB (CK-2) Rel Index 4.8 H, CK and CKMB Interp 6.2 H, Troponin I 1.06 H 10/01/17 1400: Lactic Acid 2.6 H 10/01/17 0945: Lactic Acid 3.9 H 10/01/17 0920: B-Natriuretic Peptide 440 H 10/01/17 0920: Sodium 133 L, Potassium 4.9, Chloride 96 L, Carbon Dioxide 26, BUN 5 L, Creatinine 0.8, Estimated Creat Clear 53, Estimated GFR (MDRD) 71, Glucose 172 H, Calcium 10.5 H, Total Bilirubin 0.2, AST 19, ALT 27, Alkaline Phosphatase 97 , Creatine Kinase 33, CK-MB (CK-2) Rel Index 4.5 H, CK and CKMB Interp 1.5, Troponin I 0.03, Total Protein 8.1, Albumin 3.4, Globulin 4.7 H, Albumin/ Globulin Ratio 0.7 L, WBC 16.3 H, RBC 4.55, Hgb 12.8, Hct 43.1, MCV 94.7, RDW 13.6, Plt Count 568 H, MPV 7.0 L, Gran % 78.1, Gran # 12.7 H, Total Counted 100, Lymphocytes % 15.1, Monocytes % 6.2, Eosinophils % 0.1, Basophils % 0.4, Neutrophils 74, Band Neutrophils 2, Lymphocytes (Manual) 10, Lymphocytes # 2.5, Monocytes (Manual) 14 H, Monocytes # 1.0, Eosinophils # 0.0, Basophils # 0.1, Platelet Estimate SLIGHT INCREASE, PUBS MCHC 30.1 L, MCH 28.5 Microbiology 10/01 945 BLOOD: Anaerobic Blood Culture - RECD 10/01 945 BLOOD: Aerobic Blood Culture - RECD 10/01 945 BLOOD: Anaerobic Blood Culture - RECD 10/01 945 BLOOD: Aerobic Blood Culture - RECD Assessment/Plan Problem List 1. Non-ST elevation myocardial infarction (NSTEMI) 2. COPD exacerbation 3. Pneumonitis Patient condition Guarded Plan: continue current care, consult rodent control worker This inpt stay is expected to cross 2 MNs from start of care Yes at 0714
[2017-10-02 07:32] LABS: LYMPH # 1.2 K/mm3 (0.7-4.5); LYMPH % 6.4 % (10-50.0)
--- NOTE | 2017-10-02 07:33 | PHARMACY CLINIC NOTE ---
Patient Demographics Patient Demographics Admission date: 10/01/17 Date: 10/02/17 Time: 0731 Allergies Coded Allergies: Quinolones (Mild, 11/22/15) trazodone (Mild, 11/22/15) levofloxacin (From LEVAQUIN) (10/01/17) HEIGHT- FT: 5 IN: 3.00 K.852 VTE General Information Labs: Laboratory Tests 10/01 0920 Hematology Hgb (12.2 - 16.2 g/dL) 12.8 Hct (37.0 - 47.0 %) 43.1 Plt Count (142 - 424 K/mm3) 568 H Disclaimer The following section includes nursing documentation that has been pulled in for pharmacy review. Patient's VTE score: 2 Patient's VTE Risk: VERY LOW RISK Clinical trial participant? No VTE prophylaxis NQF [id number] VTE prophylaxis ordered? Yes Type of prophylaxis/treatment: Lovenox at 0732
[2017-10-02 07:39] LABS: HEMOGLOBIN 11.4 g/dL (12.2-16.2)
[2017-10-02] MEDS ORDERED: NYSTATIN SU60 ML/BOT PO (07:56)
--- NOTE | 2017-10-02 08:08 | CONSULT NOTE ---
Standard Demographics Patient Demo Date of Consultation: 10/02/17 Referring Provider: Ashok Edward MD Reason for Consultation: NSTEMI PRIMARY DIAGNOSIS: COPD EXACERBATION Problem list Problem list: 1. 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 Tobacco use 2. 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 This morning her daughter-who apparently works as a licensed practical nurse elsewhere-took her saturations and found that they were in the low 80 percent range. She had seen Dr. Edward in his office last week and had been placed on prednisone orally for a chronic obstructive pulmonary disease exacerbation, initial improvement was noted but then this morning she felt worse. Presented to the emergency department where she was noted to be tachycardic. Patient did not notice this, after a nebulizer treatment, IV fluids and oxygen application she felt better. Chest x-ray has significant scarring but does show infiltrate. She is admitted to hospital for IV antibiotics, IV steroids, enhanced pulmonary toilet and further observation. The above per Dr. Fry. Cardiology consulted due to elevated troponins and abnormal electrocardiogram with incomplete RIGHT bundle branch block during elevated heart rate in the 150 bpm. Patient has no known history of coronary disease. She does have extensive history of hypertension and tobacco use along with chemical-induced lung disease. Past Medical History: General: Hypertension Yes CVA No Seizures No TB No COPD Yes (chemical pneumonitis/fibrosis) Asthma No Diabetes No Angina No NM No Hyperlipidemia No Urinary No Cancer No Rheumatic H.D. No Ulcers No MRSA No GB Disease No Additional hx SCOLIOSIS Past Surgical HX: Previous Surgery?Y TUBAL RIGHT ARM SURG. LUNG WASH OUT Allergies Coded Allergies: Quinolones (Mild, 11/22/15) trazodone (Mild, 11/22/15) levofloxacin (From LEVAQUIN) (10/01/17) Home medications: Active Scripts Benzonatate (Tessalon Perle) 100 MG PO Q4HP PRN COUGH #30 SGL Prov: 11/22/15 Reported Medications FLUTICASONE/SALMETEROL (Advair 500-50 Diskus) 1 PUFF IN BID LISINOPRIL (Lisinopril) 10 MG PO DAILY Oxazepam (Oxazepam 15MG) 15 MG PO TID Methylprednisolone (Medrol Dose Nahum) 4 MG PO UD [UNKNOWN] (Unknown Dose) TID Hydroxyzine Pamoate (Vistaril 25MG CAP) 25 MG PO Q6HP PRN ANXIETY NYSTATIN (Nystatin Susp 100,000 Units/Ml 60ML) 5 ML PO TID #200 Cetirizine Hcl (All Day Allergy) 10 MG PO DAILY Albuterol (Albuterol-Hfa Inhaler) 2 PUFFS IH Q4HP #1 INH Montelukast Sodium 10 MG PO DAILY 30 Days Amoxicillin Trihydrate (Amoxicillin 500MG) 500 MG PO BID #28 HYDROCODONE/ACETAMINOPHEN (Hydrocodon-Acetaminophen 5-325) 1 TAB PO TID #90 Escitalopram Oxalate 10 MG PO DAILY #90 Omeprazole (Omeprazole 20MG) 20 MG PO DAILY #90 Current Medications: Current Medications Montelukast Sodium 10 MG QHS PO Methylprednisolone Sodium Succinate 60 MG Q8 IV Ceftriaxone Sodium 1 GM DAILY IV Sodium Chloride 50 ML Oxazepam 15 MG TID PO Lorazepam 0 .STK-MED ONE .ROUTE (DC) Lorazepam 0.5 MG Q4HP PRN IV Sodium Chloride 2 ML PRN PRN IV Ondansetron HCl 0 .STK-MED ONE .ROUTE (DC) Hydroxyzine Pamoate 0 .STK-MED ONE PO (DC) Metoprolol Tartrate 0 .STK-MED ONE .ROUTE (DC) Metoprolol Tartrate 25 MG Q12 PO Nicotine 0 .STK-MED ONE TD (DC) Ondansetron HCl 0 .STK-MED ONE .ROUTE (DC) Fluticasone/Salmeterol 1 PUFFS BID IN (DC) Patient Own Medication ADVAIR 500/50 - 1 PUFF BID IH Hydrocodone Bitart/Acetaminophen 0 .STK-MED ONE PO (DC) Hydroxyzine Pamoate 25 MG Q6HP PRN PO Hydroxyzine Pamoate 0 .STK-MED ONE PO (DC) Methylprednisolone Sodium Succinate 0 .STK-MED ONE .ROUTE (DC) Methylprednisolone Sodium Succinate 60 MG Q6 IV (DC) Oxazepam 15 MG TIDP PRN PO (DC) Oxazepam 0 .STK-MED ONE PO (DC) Oxazepam 15 MG BIDP PRN PO (DC) Hydrocodone Bitart/Acetaminophen 1 TAB TID PO Levalbuterol HCl 1.25 MG ONCE ONE INH (DC) Levalbuterol HCl 0 .STK-MED ONE INH (DC) Levalbuterol HCl 1.25 MG Q6H6 INH Sodium Chloride 10 ML PRN PRN IV Azithromycin 500 MG 1100 IV Sodium Chloride 250 ML Acetaminophen 650 MG Q4HP PRN PO Influenza Virus Vaccine Quadrival 0.5 ML PRN PRN IM Nicotine 21 MG DAILYP PRN TD Ondansetron HCl 4 MG Q6HP PRN IV Sodium Chloride 8 ML BID IV Famotidine 20 MG BID IV (DC) Enoxaparin Sodium 40 MG DAILY SC Ceftriaxone Sodium 1 GM ONCE ONE IV (DC) Sodium Chloride 50 ML Famotidine 20 MG ONCE ONE IV (DC) Levalbuterol HCl 1.25 MG ONCE ONE INH (DC) Sodium Chloride 8 ML ONCE ONE IV (DC) Sodium Chloride 1,000 ML .Q2H IV (DC) Sodium Chloride 10 ML PRN PRN IV Ceftriaxone Sodium 0 .STK-MED ONE IV (DC) Famotidine 0 .STK-MED ONE IV (DC) Sodium Chloride 50 ML .STK-MED ONE IV (DC) Sodium Chloride 1,000 ML .STK-MED ONE IV (DC) Levalbuterol HCl 0 .STK-MED ONE INH (DC) Methylprednisolone Sodium Succinate 125 MG ONCE ONE IV (DC) Sodium Chloride 10 ML PRN PRN IV Methylprednisolone Sodium Succinate 0 .STK-MED ONE .ROUTE (DC) Citalopram Hydrobromide 20 MG DAILY PO Lisinopril 10 MG DAILY PO Loratadine 10 MG DAILY PO Montelukast Sodium 10 MG DAILY PO (DC) Pantoprazole Sodium 40 MG DAILY PO Immunization HX DT/Tetanus 1-4 YRS AGO Flu [id number] Pneumonia RECEIVED IN PAST TB Test in last year No Family history Family HX Family Hx Insignificant No Diabetes Yes CAD Yes Hypertension Yes Hyperlipidemia Yes Cancer Yes TB Yes Social Hx: Smoking HX Tobacco Yes Type Cigarettes Packs/day < 1 PACK Are you/the child exposed to second-hand smoke: Yes Alcohol Alcohol: No Hx of Drug Use Drug Use? No Review of systems: Constitutional weakness. Respiratory shortness of breath, SOB with excertion. Cardiovascular chest pain Gastrointestinal/Abdominal No no symptoms reported Genitourinary No: no symptoms reported. Musculoskeletal back pain. Neurological No: no symptoms reported. Exam: Admission Vital Signs: 1ST Vital Signs Result Date Time Pulse Ox 99 10/01 924 B/P 131/94 10/01 924 O2 Flow Rate 5 10/01 09 Temp 97.1 10/01 924 Pulse 148 10/01 09 Resp 28 10/01 0924 O2 Delivery OXYGEN 10/01 1141 Last Vital Signs: Vital Signs Result Date Time Pulse Ox 93 10/02 806 B/P 124/72 10/02 806 O2 Delivery OXYGEN 10/02 806 Temp 97.8 10/02 08 Pulse 99 10/02 0806 Resp 22 10/02 08 O2 Flow Rate 3 10/02 0628 Exam General appearance: alert, awake Neck: no carotid bruit, no JVD Cardiovascular: regular rate & rhythm Respiratory: decreased breath sounds bilaterally with diffuse coarse breath sounds and mild wheezing. ABD: soft Extremities: moves all, no peripheral edema Neuro: alert, intact, oriented Laboratory data: Laboratory Tests 10/02/17 0626: Sodium 138, Potassium 4.9, Chloride 104, Carbon Dioxide 26, BUN 13, Creatinine 0.8, Estimated Creat Clear 54, Estimated GFR (MDRD) 71, Glucose 195 H, Calcium 9.9 10/02/17 0626: B-Natriuretic Peptide 3680 H, WBC 18.0 H, RBC 3.96 L, Hgb 11.4 L, Hct 37.6, MCV 95.0, RDW 13.7, Plt Count 513 H, MPV 7.4, Gran % 87.6 H, Gran # 15.8 H, Lymphocytes % 6.4 L, Monocytes % 5.7, Eosinophils % 0.1, Basophils % 0.2, Lymphocytes # 1.2, Monocytes # 1.0, Eosinophils # 0.0, Basophils # 0.0, PUBS MCHC 30.1 L, MCH 28.6 10/01/17 2200: Creatine Kinase 153, CK-MB (CK-2) Rel Index 6.3 H, CK and CKMB Interp 9.7 *H, Troponin I 1.23 H 10/01/17 1900: Creatine Kinase 130, CK-MB (CK-2) Rel Index 4.8 H, CK and CKMB Interp 6.2 H, Troponin I 1.06 H 10/01/17 1400: Lactic Acid 2.6 H 10/01/17 0945: Lactic Acid 3.9 H 10/01/17 0920: B-Natriuretic Peptide 440 H 10/01/17 0920: Sodium 133 L, Potassium 4.9, Chloride 96 L, Carbon Dioxide 26, BUN 5 L, Creatinine 0.8, Estimated Creat Clear 53, Estimated GFR (MDRD) 71, Glucose 172 H, Calcium 10.5 H, Total Bilirubin 0.2, AST 19, ALT 27, Alkaline Phosphatase 97 , Creatine Kinase 33, CK-MB (CK-2) Rel Index 4.5 H, CK and CKMB Interp 1.5, Troponin I 0.03, Total Protein 8.1, Albumin 3.4, Globulin 4.7 H, Albumin/ Globulin Ratio 0.7 L, WBC 16.3 H, RBC 4.55, Hgb 12.8, Hct 43.1, MCV 94.7, RDW 13.6, Plt Count 568 H, MPV 7.0 L, Gran % 78.1, Gran # 12.7 H, Total Counted 100, Lymphocytes % 15.1, Monocytes % 6.2, Eosinophils % 0.1, Basophils % 0.4, Neutrophils 74, Band Neutrophils 2, Lymphocytes (Manual) 10, Lymphocytes # 2.5, Monocytes (Manual) 14 H, Monocytes # 1.0, Eosinophils # 0.0, Basophils # 0.1, Platelet Estimate SLIGHT INCREASE, PUBS MCHC 30.1 L, MCH 28.5 Microbiology Date/Time Procedure - Status Source Growth 10/01 945 Anaerobic Blood Culture - RECD BLOOD 10/01 945 Aerobic Blood Culture - RECD BLOOD 10/01 945 Anaerobic Blood Culture - RECD BLOOD 10/01 945 Aerobic Blood Culture - RECD BLOOD Plan Assessment: 1. Non-ST elevation myocardial infarction 2. Pneumonia 3. Elevated BNP, 3680. Add IV lasix. 4. severe Lung disease 5. tobacco use 6. HTN MINNA N-STEMI SCORE MINNA N-STEMI SCORE Response Value Age of patient 65 yrs or more 1 Number of risk factors for CAD Presence of 3 or more 1 Prior coronary artery stenosis (seen in angiography) Less than 50% 0 ST-Segment deviation on ECG (>1 min) Absent 0 Prior aspirin intake No ASA in the last 7 days 0 Severe anginal chest pain No or 1 episode in 24h 0 Elevated cardiac markers(CK-MB or troponin) Present 1 Total 3 Plan: 1. Echocardiogram is pending at this time. 2. Patient is unable to lie flat at this time. Recommendation for cardiac catheterization was made but will be postponed until patient is able to lie flat. 3. Continue metoprolol and lisinopril. Recommend adding aspirin 81 mg and plavix 75 mg daily. at 0856
--- NOTE | 2017-10-02 20:00 | RADIOLOGY REPORT PS360 ---
PROCEDURE: 2-D M-mode and color Doppler study INDICATIONS FOR THE TEST: Chest pain COPD+ Heart Murmur Tobacco Smoking+ Palpitations Fatigue Syncope Edema Hypertension+Diabetes Mellitus Rheumatic Fever SOB+OCASIO Obesity Hyperlipidemia+ Family History HD Additional History CHEMICAL PNEUMONIA, FIBROSIS PATIENT INFORMATION HEIGHT: 63 WEIGHT:114 GENDER: Female B/P:131/94 2-D/M-MODE INTERPRETATION: 2-D MEASUREMENTS OBSERVED VALUES IN CMS Right Ventricular Dimension (RVDd) 3.1 Interventricular Septum (Thickness)(IVsd) 1.1 Left Ventricular Internal Dimensions(LVIDd) 4.1 Left Ventricular Posterior Wall (Thickness)(LVPWd) 1.1 Aortic Root 2.6 Aortic Cusp Separation 1.8 Left Atrial Dimensions (LAD) 3.5 2D 1. Technically difficult study because of the patient's factor and poor acoustic windows 2. The left atrium is moderately enlarged, left ventricle is mildly dilated, there is mild concentric left ventricular hypertrophy, there is severely reduced left ventricular systolic function, visually estimated ejection fraction approximately 20%, there is marked hypo to akinesis involving mid to distal septum, anterior, anteroapical, apical and anterolateral wall. 3. The right atrium and right ventricle are moderately enlarged, contractility of the right ventricle is moderately reduced. 4. The aortic valve is thickened and calcified leaflet continue to display mobility. 5. The mitral and tricuspid valve leaflets are minimally thickened. 6. The pulmonic valve is poorly visualized. 7. No significant pericardial effusion noted. DOPPLER INTERROGATION: Doppler interrogation of the aortic, mitral and tricuspid valvular presence of mild mitral and tricuspid regurgitation, calculated right ventricular systolic pressure is 39 mmHg consistent with mild pulmonary hypertension, diastolic parameters are inconclusive. CONCLUSION: 1. Biatrial enlargement, mildly dilated left ventricle, mild concentric left ventricular hypertrophy, visually estimated ejection fraction approximately 20% with multiple segmental wall motion abnormality described above, diastolic parameters are inconclusive. 2. Moderately enlarged right ventricle with moderate reduction in right ventricular contractility. 3. Mild mitral and tricuspid regurgitation 4. No significant pericardial effusion noted.
[2017-10-03] VITALS (8 sets, daily range): BP systolic 112–133; BP diastolic 51–75
--- NOTE | 2017-10-03 07:07 | ACUTE CARE PROGRESS NOTE (QUA) ---
Progress Notes Subjective Date 10/03/17 Time 0703 Note Patient has no new complaints this morning. She slept fairly well overnight but awoke early this morning feeling anxious. Her daughter asks that the Ativan be continued. In regards to shortness of breath she's noticed some improvement as well. She was given additional IV Lasix yesterday evening. She denies any chest pain. Patient is awake and alert. She has increased respiratory rate. Lungs have improved aeration with expiratory wheezes. Heart is tachycardic. Extremities are without edema. Labs pending Echocardiogram showed ejection fraction of 20 percent and evidence of pulmonary hypertension. 1. Continue Solu-Medrol and aerosols 2. Change metoprolol to carvedilol, continue lisinopril and Lasix. I discussed with the family the benefits of cardiac catheterization and the patient feels like at this time she still cannot lay flat. 3. Discontinue oxazepam in favor of oral Ativan. Risks and benefits discussed of using Ativan for anxiety/sedation and its effect on her respiratory system Objective Findings Last VS-Temp:97.6 B/P:119/69 Pulse:77 Resp:22 SaO2:99 OXYGEN Last weight lbs:114 oz:5 K.852 Method:Bed Scales Assessment/Plan Problem List 1. Non-ST elevation myocardial infarction (NSTEMI) 2. COPD exacerbation 3. Pneumonitis Patient condition Stable Plan: continue current care, make medication changes This inpt stay is expected to cross 2 MNs from start of care Yes at 0706
[2017-10-03 07:29] LABS: HEMOGLOBIN 11.4 g/dL (12.2-16.2); LYMPH % 8.1 % (10-50.0)
--- NOTE | 2017-10-03 08:57 | ACUTE CARE PROGRESS NOTE (QUA) ---
Progress Notes Subjective Date 10/03/17 Time 0848 Note 71 yo WF in bed. Still with SOA which is exacerbated by anxiety. Questions about cath and sedation as well as results of Echo and possible AICD discussed. Family states patient is going to sign DNR. She is willing to have cardiac cath but is concerned about being able to lie flat due to SOA and back pain from scoliosis. Objective Findings Last VS-Temp:97.7 B/P:129/60 Pulse:91 Resp:22 SaO2:98 OXYGEN Last weight lbs:114 oz:5 K.852 Method:Bed Scales Exam General appearance: awake, thin, hard of hearing Cardiovascular: regular rate & rhythm Respiratory: diffuse wheezing bilaterally Extremities: moves all, no peripheral edema Neuro: alert Reviewed: medications, vital signs, lab results Assessment/Plan Problem List 1. Non-ST elevation myocardial infarction (NSTEMI) Assessment/Plan: On ASA and plavix. 2. COPD exacerbation 3. Pneumonitis 4. Cardiomyopathy Assessment/Plan: Pt now on coreg and SOUMYA along with lasix. Echo shows EF 20% with multiple segmental wall motion abnormalities. Patient condition Guarded Plan: Tentatively planning for cardiac cath tomorrow. Will use wedge under back to help with pain and anxiety. This inpt stay is expected to cross 2 MNs from start of care Yes at 1406
[2017-10-04] VITALS (17 sets, daily range): BP systolic 112–185; BP diastolic 63–104
--- NOTE | 2017-10-04 08:12 | ACUTE CARE PROGRESS NOTE (QUA) ---
Progress Notes Subjective Date 10/04/17 Time 0810 Note Patient has no complaints this morning. She still feels mildly short of breath but this has improved over the last 24 hours. She has agreed to cardiac catheterization. Vital signs reviewed. Lungs have adventitious sounds but no rales. There is occasional expiratory wheeze. Heart has regular rate and rhythm. Cardiac catheterization today. Patient has agreed to stenting if necessary but does not want any further intervention should be recommended. Patient has been made a DO NOT RESUSCITATE. Continue medical management and await cardiac catheterization results. By this afternoon patient can sit up in a chair. Continue steroids and nebs Objective Findings Last VS-Temp:98.2 B/P:132/74 Pulse:89 Resp:22 SaO2:98 OXYGEN Last weight lbs:114 oz:5 K.852 Method:Bed Scales Assessment/Plan Problem List 1. Non-ST elevation myocardial infarction (NSTEMI) 2. COPD exacerbation 3. Pneumonitis 4. Cardiomyopathy Patient condition Stable Plan: continue current care This inpt stay is expected to cross 2 MNs from start of care Yes at 0811
--- NOTE | 2017-10-04 09:49 | ACUTE CARE PROGRESS NOTE (QUA) ---
Progress Notes Subjective Date 10/04/17 Time 0948 Assessment/Plan Problem List 1. Non-ST elevation myocardial infarction (NSTEMI) 2. COPD exacerbation 3. Pneumonitis 4. Cardiomyopathy This inpt stay is expected to cross 2 MNs from start of care Yes Antibiotic Stewardship (2) Current Culture Results Microbiology 10/01 945 BLOOD: Anaerobic Blood Culture - RES 10/01 0945 BLOOD: Aerobic Blood Culture - RES Infxn that will respond? Yes Right drug,dose,and route? Yes More targeted antbx? No at 0948
--- NOTE | 2017-10-04 11:18 | RADIOLOGY REPORT PS360 ---
CARDIAC CATHETERIZATION DATE OF CATHETERIZATION:10/04/2017 10:46 AM PROCEDURES: 1. Left heart catheterization 2. Left ventriculogram 3. Selective coronary angiogram INDICATION FOR TEST: 1. Systolic congestive heart failure ejection fraction 20% 2. Acute non-ST elevation myocardial infarction troponin greater than 1 Informed consent was obtained prior to the procedure. COMPLICATIONS: None ESTIMATED BLOOD LOSS: Less than 10 ml. TECHNIQUE: One percent lidocaine used to anesthetize the right anterior aspect of the wrist. The right radial artery was accessed via the Seldinger technique. A 6 Turkmen sheath was placed in the right radial artery. 2.5 mg of verapamil, 800 mcg of nitroglycerin and 5000 U Heparin were given through the arterial sheath. The trap catheter was also used to perform left heart catheterization and left ventriculography. At the end of the procedure the patient was transferred to the post-op holding area in stable condition for arterial sheath removal. ANGIOGRAPHIC RESULTS: 1. The left main artery normal 2. The left anterior descending artery has proximal 10% stenoses within mid vessel myocardial bridge creating a 50% systolic compression. 3. The circumflex artery is nondominant and has mild 10-20% stenoses 4. The right coronary artery is a dominant vessel and has mid vessel 50-60% stenosis 5. The HELMS ventriculogram reveals left ventricular dilatation reduced ejection fraction 25% 6. The left ventricular end-diastolic pressure 20 mmHg IMPRESSION: 1. Cardiomyopathy which is out of proportion to the extent of coronary artery disease suggesting a primary myocardial process which is nonischemic 2. Coronary artery disease 3. Severely reduced ejection fraction 4. Mildly elevated LVEDP PLAN: 1. Standard therapy for systolic congestive heart failure 2. At this time I do not feel stenting the right coronary artery would offer any clinical benefit patient 3. Because of the non-STEMI data would indicate or suggest patient should be on aspirin and Plavix for one year 4. Risk factor modification 5. Cardiac rehabilitation 6. I do not believe patient is a candidate for either a lifevest or defibrillator
[2017-10-05] VITALS (8 sets, daily range): BP systolic 107–135; BP diastolic 61–80
--- NOTE | 2017-10-05 07:19 | ACUTE CARE PROGRESS NOTE (QUA) ---
Progress Notes Subjective Date 10/05/17 Time 0717 Note Patient has no complaints this morning. She still has mild dyspnea. She underwent cardiac catheterization yesterday and has nonischemic cardiomyopathy. Patient is in no distress. Lungs have faint expiratory wheezes improved from yesterday. Heart has a regular rate and rhythm. Continue current care but transition to orals except for steroids and azithromycin. Per family request hospice will be consult Objective Findings Last VS-Temp:98.5 B/P:107/61 Pulse:83 Resp:22 SaO2:96 OXYGEN Last weight lbs:114 oz:5 K.852 Method:Bed Scales Laboratory Tests 10/04/17 0830: Sodium 138, Potassium 4.5, Chloride 98, Carbon Dioxide 38 H, BUN 24 H, Creatinine 0.8, Estimated Creat Clear 54, Estimated GFR (MDRD) 71, Glucose 130 H, Calcium 10.0 Assessment/Plan Problem List 1. Non-ST elevation myocardial infarction (NSTEMI) 2. COPD exacerbation 3. Pneumonitis 4. Cardiomyopathy Patient condition Improving Plan: continue current care This inpt stay is expected to cross 2 MNs from start of care Yes at 0718
[2017-10-05] MEDS ORDERED: CARVEDILOL6.25 MG PO (07:20)
[2017-10-05] MEDS ORDERED: CLOPIDOGREL75 M1 PO (07:21)
[2017-10-05] MEDS ORDERED: ADULT LOW DOSE81 MG PO (07:22)
[2017-10-05] MEDS ORDERED: FUROSEMIDE40 MG PO (07:22)
[2017-10-05] MEDS ORDERED: PREDNISONE20 MG PO (07:23)
[2017-10-05] MEDS ORDERED: LORAZEPAM0.5 MG PO (07:26)
--- NOTE | 2017-10-05 07:39 | ACUTE CARE PROGRESS NOTE (QUA) ---
Progress Notes Subjective Date 10/05/17 Time 0736 Note 71 yo WF in bed eating breakfast in NAD. Breathing easier. Objective Findings Last VS-Temp:98.5 B/P:107/61 Pulse:83 Resp:22 SaO2:96 OXYGEN Last weight lbs:114 oz:5 K.852 Method:Bed Scales Exam General appearance: alert, awake, no acute distress Cardiovascular: regular rate & rhythm Respiratory: Less wheezing bilaterally. Reviewed: medications, vital signs, lab results Assessment/Plan Problem List 1. Non-ST elevation myocardial infarction (NSTEMI) 2. COPD exacerbation 3. Pneumonitis 4. Cardiomyopathy Patient condition Guarded Plan: Continue current meds. Pt and family are interested in Hospice. Planning discharge tomorrow. Follow up in one week for post cath visit. Call if needed. This inpt stay is expected to cross 2 MNs from start of care Yes at 0741
[2017-10-06 00:06] VITALS: BP 113/56
[2017-10-06 04:00] VITALS: BP 135/74
--- NOTE | 2017-10-06 07:21 | Discharge Summary ---
Demographics Admit date: 10/01/17 Discharge date: 10/06/17 Discharge diagnoses Problem List 1. Non-ST elevation myocardial infarction (NSTEMI) 2. COPD exacerbation 3. Pneumonitis 4. 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 This morning her daughter-who apparently works as a licensed practical nurse elsewhere-took her saturations and found that they were in the low 80 percent range. She had seen Dr. Edward in his office last week and had been placed on prednisone orally for a chronic obstructive pulmonary disease exacerbation, initial improvement was noted but then this morning she felt worse. Presented to the emergency department where she was noted to be tachycardic. Patient did not notice this, after a nebulizer treatment, IV fluids and oxygen application she felt better. Chest x-ray has significant scarring but does show infiltrate. Patient was admitted to hospital for IV antibiotics, IV steroids, enhanced pulmonary toilet and further observation. It was noted on electrocardiogram that she had incomplete RIGHT bundle jamil block as well as significant tachycardia. Troponin was repeated later in the day on admission and had turned positive. Cardiology was consult to and at that point. On October 02 patient underwent cardiology consultation and it was decided she would need cardiac catheterization prior to discharge. However because of a combination of acute congestive heart failure along with chronic obstructive pulmonary disease exacerbation she was unable to stay supine for catheterization. Patient was diuresed with twice-daily furosemide intravenously as well as continued on intravenous steroids and aerosols for her chronic obstructive pulmonary disease exacerbation. After an additional 48 hours of treatment patient had improved enough to undergo cardiac catheterization. On October 04 patient underwent cardiac catheterization which revealed revealed a RIGHT coronary lesion but otherwise no significant obstructive coronary disease. Patient had cardiomyopathy with ejection fraction of 20 percent on echocardiogram. It was not felt her RIGHT coronary lesion was contributing to her cardiomyopathy. Patient was diagnosed with nonischemic cardiomyopathy. She was continued on beta blockers as well as SOUMYA inhibitor's and Lasix. Patient's prognosis is poor. She is not a candidate for a LifeVest or defibrillator and the patient actually did not want these interventions when they were first mentioned as possibilities prior to catheterization. Because of the patient's poor prognosis hospice was consult to and has picked up the patient and will follow her when she is discharged from the hospital. Patient was continued on steroids and aerosols for her chronic obstructive pulmonary disease exacerbation and by the wheezing had resolved. Patient was discharged home in stable condition Medications Medications: Discharge meds are as noted. Follow up Follow up in office in: as needed with: Ashok Edward MD at 0720
[2017-10-06 07:55] VITALS: BP 142/76
[2017-10-06 09:12] VITALS: BP 142/76
[2017-10-06 11:03] VITALS: BP 142/76
== END 2017-10-06 11:25 | disposition hospice, home (50) | DRG 280 ==
LOC: ER 09:24 → 2ND 11:08
PROVIDERS: Emergency Medicine; Family Medicine; Internal Medicine; Internal Medicine Adolescent Medicine
PROC: 4A023N7 Measurement of Cardiac Sampling and Pressure, Left Heart, Percutaneous Approach (ICD-10-PCS; principal; 2017-10-04 12:15)
PROC: B2111ZZ Fluoroscopy of Multiple Coronary Arteries using Low Osmolar Contrast (ICD-10-PCS; principal; 2017-10-04 12:15)
PROC: B2151ZZ Fluoroscopy of Left Heart using Low Osmolar Contrast (ICD-10-PCS; principal; 2017-10-04 12:15)
DX: I21.29 ST elevation (STEMI) myocardial infarction involving other sites (principal); J18.9 Pneumonia, unspecified organism; I50.20 Unspecified systolic (congestive) heart failure; I42.9 Cardiomyopathy, unspecified; J44.9 Chronic obstructive pulmonary disease, unspecified
CPT/HCPCS: C1725; C1769; J0456; J1644; J2405; Q9967